=== PATIENT | male | born 1945 ===

== ENCOUNTER 2017-07-15 07:57 | Day surgery (SDC) | payer MEDICARE ==
[2017-06-16 12:35] VITALS: BMI 24.9
[2017-07-15 09:00] VITALS: O2SAT 100
[2017-07-15] MEDS ORDERED: Lactated Ringer's 1,000 ML IV ONE (10:25)
[2017-07-15 14:05] VITALS: RESP 15; TEMP 96.9
[2017-07-15 14:15] VITALS: BP 134/77; PULSE 86
== END 2017-07-15 12:20 | disposition home or self-care (01) ==
LOC: C.ENDO 07:57
PROVIDERS: ATTEND Internal Medicine Gastroenterology
DX: K64.1 Second degree hemorrhoids (principal); K63.5 Polyp of colon; K57.30 Diverticulosis of large intestine without perforation or abscess without bleeding
CPT/HCPCS: 45381; 45385; 88305; J7120